=== PATIENT | male | born 1960 | race Caucasian/White ===

== ENCOUNTER 2018-04-09 11:26 | Inpatient (IN) ==
[2018-04-09] MEDS ORDERED: SODIUM CHLORIDE 0.9% 1,000 ML IV STA (12:06)
[2018-04-09] MEDS ORDERED: ONDANSETRON 4 MG/2 ML VIAL IV STA (12:06)
[2018-04-09 12:31] LABS: Basophils % 0.2 % (0.0-0.8); Eosinophils % 0.1 % (0.00-10.9); Hematocrit 33.7 VOL% (42.0-52.0); Hemoglobin 10.4 GM/DL (14.0-18.0); Immature Granulocytes % 0.2 %; Immature Granulocytes Absolute 0.02 #; Lymphocytes # 1.1 10*3/uL (1.4-4.0); Lymphocytes % 11.6 % (21.2-54.2); Mean Corpuscular HGB Conc 30.9 GM/DL (32-36); Mean Corpuscular Hemoglobin 21 PG (27-34); Mean Corpuscular Volume 68.9 FL (87-102); Monocytes # 0.7 10*3/uL (0.11-0.8); Monocytes % 7.7 % (1.7-12.7); Neutrophils # 7.3 10*3/uL (1.4-7.4); Neutrophils % 80.2 % (38.7-73.9); Platelet Count 465 T/CUMM (130-400); Red Blood Count 4.89 MC/CUMM (3.8-5.5); Red Cell Distribution Width 22.8 % (9.3-17.3); White Blood Count 9.1 T/CUMM (4-12)
[2018-04-09 12:58] LABS: Alanine Aminotransferase 13 U/L (16-61); Albumin 3.1 G/DL (3.4-5.0); Alkaline Phosphatase 77 U/L (45-117); Amylase 15 U/L (25-115); Aspartate Amino Transferase 14 U/L (0-37); Blood Urea Nitrogen 24 MG/DL (7-18); Calcium 9.2 MG/DL (8.5-10.1); Glucose 76 MG/DL (74-106); Osmolality,Calculated 266.5 MOS/KG (273-304); Sodium 132 MMOL/L (136-145); Total Protein 7.2 G/DL (6.4-8.3); Troponin I Only < 0.015 NG/ML (0.00-0.045)
[2018-04-09 13:16] LABS: Macrocytosis 2+; Target Cells Slight
[2018-04-09 13:55] LABS: Apearance,Urine Slightly Hazy (Clear); Bacteria,Urine Few /HPF (Few); Blood, Urine Negative (Negative); Glucose,Urine (UA) Negative (Negative); Granular Casts,Urine 3 /LPF (0-1); Hyaline Casts,Urine 19 /LPF (0-3); Ketones,Urine 80 mg/dL (Negative); Mucus,Urine Few /LPF (Occasional); Nitrite,Urine Negative (Negative); Protein,Urine 30 MG/DL; RBC,Urine <1 /HPF (0-4); Squamous Epithelial Cell,Urine Occasional /HPF (0-10); Urine Color Amber (Yellow); WBC,Urine 2 /HPF (0-6)
[2018-04-09 13:58] LABS: Bilirubin,Urine Small mg/dL (Negative)
[2018-04-09] MEDS ORDERED: ACETAMINOPHEN 325 MG TABLET PO PRN (16:30)
[2018-04-09] MEDS: SODIUM CHLORIDE 0.9% 1,000 ML IV SCH (17:30)
[2018-04-09] MEDS: PANTOPRAZOLE 40 MG VIAL IV SCH (21:12)
[2018-04-10] MEDS: SODIUM CHLORIDE 0.9% 1,000 ML IV SCH ×3 (01:11→18:49)
[2018-04-10] MEDS: ONDANSETRON 4 MG/2 ML VIAL IV PRN ×3 (01:17→16:29)
[2018-04-10] MEDS ORDERED: PHENYLEPHRINE 1 MG/10 ML SYRINGE IV ONE (09:00)
[2018-04-10] MEDS ORDERED: PANTOPRAZOLE 40 MG TABLET PO SCH (09:00)
[2018-04-10] MEDS ORDERED: LIDOCAINE 2% 5 ML VIAL ONE (09:00)
[2018-04-10] MEDS ORDERED: PROPOFOL 200 MG/20 ML VIAL IV ONE (09:00)
[2018-04-10] MEDS: PANTOPRAZOLE 40 MG VIAL IV SCH ×2 (09:23→21:43)
[2018-04-10 09:40] LABS: Basophils % 0.3 % (0.0-0.8); Eosinophils % 0.6 % (0.00-10.9); Hematocrit 27.3 VOL% (42.0-52.0); Hemoglobin 8.6 GM/DL (14.0-18.0); Immature Granulocytes % 0.3 %; Immature Granulocytes Absolute 0.02 #; Lymphocytes % 14.3 % (21.2-54.2); Mean Corpuscular HGB Conc 31.5 GM/DL (32-36); Mean Corpuscular Hemoglobin 22 PG (27-34); Mean Corpuscular Volume 69.1 FL (87-102); Mean Platelet Volume 10.8 FL (9.6-12.0); Monocytes # 0.6 10*3/uL (0.11-0.8); Monocytes % 9.4 % (1.7-12.7); Neutrophils # 5.1 10*3/uL (1.4-7.4); Neutrophils % 75.1 % (38.7-73.9); Platelet Count 335 T/CUMM (130-400); Red Blood Count 3.95 MC/CUMM (3.8-5.5); Red Cell Distribution Width 22.5 % (9.3-17.3); White Blood Count 6.8 T/CUMM (4-12)
[2018-04-10 10:16] LABS: Calcium 8.1 MG/DL (8.5-10.1); Osmolality,Calculated 273.8 MOS/KG (273-304); Potassium 4.3 MMOL/L (3.5-5.1); Risk Ratio 1.97; VLDL CHOLESTEROL 13.2 MG/DL
[2018-04-10 10:22] LABS: % Iron Saturation 5.3 % (18-50); Ferritin 3.8 ng/ml (26-388)
[2018-04-10 11:09] LABS: Hypochromasia 1+; Microcytosis 2+; Ovalocytes 1+; Platelet Estimate Normal
[2018-04-10 12:49] LABS: Cancer Antigen 19-9 137.2 U/ML (0-37); Carcinoembryonic Antigen 5.1 NG/ML (0.0-5.0)
[2018-04-10 13:18] LABS: Folate 10.6 NG/ML (5.4-24.0)
[2018-04-11] MEDS: ONDANSETRON 4 MG/2 ML VIAL IV PRN ×2 (00:59→13:47)
[2018-04-11] MEDS: SODIUM CHLORIDE 0.9% 1,000 ML IV SCH ×3 (04:06→22:23)
[2018-04-11 06:45] LABS: Basophils % 0.4 % (0.0-0.8); Eosinophils % 0.5 % (0.00-10.9); Hematocrit 24.4 VOL% (42.0-52.0); Hemoglobin 7.5 GM/DL (14.0-18.0); Immature Granulocytes % 0.2 %; Immature Granulocytes Absolute 0.01 #; Lymphocytes # 1.2 10*3/uL (1.4-4.0); Lymphocytes % 21.3 % (21.2-54.2); Mean Corpuscular HGB Conc 30.7 GM/DL (32-36); Mean Corpuscular Hemoglobin 22 PG (27-34); Mean Corpuscular Volume 70.9 FL (87-102); Mean Platelet Volume 10.4 FL (9.6-12.0); Monocytes # 0.6 10*3/uL (0.11-0.8); Monocytes % 10.6 % (1.7-12.7); Neutrophils # 3.7 10*3/uL (1.4-7.4); Platelet Count 272 T/CUMM (130-400); Red Blood Count 3.44 MC/CUMM (3.8-5.5); Red Cell Distribution Width 22.5 % (9.3-17.3); White Blood Count 5.5 T/CUMM (4-12)
[2018-04-11 07:22] LABS: Osmolality,Calculated 277.3 MOS/KG (273-304); Potassium 3.4 MMOL/L (3.5-5.1)
[2018-04-11 07:35] LABS: Macrocytosis 1+; Polychromasia Slight; Target Cells Slight
[2018-04-11] MEDS: PANTOPRAZOLE 40 MG VIAL IV SCH ×3 (11:51→21:25)
[2018-04-11] MEDS: POTASSIUM CHLORIDE 20 MEQ TABLET PO PRN ×2 (14:26→19:21)
[2018-04-11] MEDS: METOCLOPRAMIDE 10 MG/2 ML VIAL IV SCH ×3 (14:27→23:44)
[2018-04-12] MEDS: METOCLOPRAMIDE 10 MG/2 ML VIAL IV SCH (05:33)
[2018-04-12 06:34] LABS: Basophils % 0.5 % (0.0-0.8); Eosinophils # 0.1 10*3/uL (0.0-0.87); Eosinophils % 0.9 % (0.00-10.9); Hematocrit 25.8 VOL% (42.0-52.0); Immature Granulocytes % 0.4 %; Immature Granulocytes Absolute 0.02 #; Lymphocytes # 1.3 10*3/uL (1.4-4.0); Lymphocytes % 22.8 % (21.2-54.2); Mean Corpuscular Hemoglobin 21 PG (27-34); Mean Corpuscular Volume 69.2 FL (87-102); Mean Platelet Volume 10.4 FL (9.6-12.0); Monocytes # 0.5 10*3/uL (0.11-0.8); Monocytes % 9.6 % (1.7-12.7); Neutrophils # 3.6 10*3/uL (1.4-7.4); Neutrophils % 65.8 % (38.7-73.9); Platelet Count 297 T/CUMM (130-400); Red Blood Count 3.73 MC/CUMM (3.8-5.5); Red Cell Distribution Width 22.9 % (9.3-17.3); White Blood Count 5.5 T/CUMM (4-12)
[2018-04-12 06:53] LABS: Calcium 8.6 MG/DL (8.5-10.1); Osmolality,Calculated 272.5 MOS/KG (273-304)
[2018-04-12] MEDS ORDERED: PANTOPRAZOLE 40 MG TABLET PO ONE (09:43)
[2018-04-12] MEDS: PANTOPRAZOLE 40 MG TABLET PO SCH (09:56)
[2018-04-12] MEDS: PANTOPRAZOLE 40 MG VIAL IV SCH (10:24)
[2018-04-12] MEDS: METOCLOPRAMIDE 10 MG/10 ML UDCUP PO SCH ×3 (12:15→20:58)
[2018-04-12 13:00] LABS: Microcytosis 1+
[2018-04-12] MEDS: ONDANSETRON 4 MG/2 ML VIAL IV PRN ×2 (17:50→23:00)
[2018-04-12] MEDS: SODIUM CHLORIDE 0.9% 1,000 ML IV SCH (22:43)
[2018-04-13] MEDS: METOCLOPRAMIDE 10 MG/10 ML UDCUP PO SCH (06:39)
[2018-04-13] MEDS: PANTOPRAZOLE 40 MG TABLET PO SCH (09:29)
[2018-04-13] MEDS: ONDANSETRON 4 MG/2 ML VIAL IV PRN ×2 (13:54→22:25)
[2018-04-13] MEDS: SODIUM CHLORIDE 0.9% 1,000 ML IV SCH (22:24)
[2018-04-14] MEDS: ONDANSETRON 4 MG/2 ML VIAL IV PRN ×3 (06:04→14:51)
[2018-04-14] MEDS: PANTOPRAZOLE 40 MG TABLET PO SCH (10:46)
[2018-04-14 12:01] LABS: Basophils % 0.2 % (0.0-0.8); Eosinophils % 0.3 % (0.00-10.9); Hemoglobin 8.2 GM/DL (14.0-18.0); Immature Granulocytes % 0.3 %; Immature Granulocytes Absolute 0.02 #; Lymphocytes # 0.8 10*3/uL (1.4-4.0); Lymphocytes % 12.1 % (21.2-54.2); Mean Corpuscular HGB Conc 30.4 GM/DL (32-36); Mean Corpuscular Hemoglobin 21 PG (27-34); Mean Corpuscular Volume 69.8 FL (87-102); Mean Platelet Volume 10.9 FL (9.6-12.0); Monocytes # 0.5 10*3/uL (0.11-0.8); Monocytes % 7.3 % (1.7-12.7); Neutrophils # 5.1 10*3/uL (1.4-7.4); Neutrophils % 79.8 % (38.7-73.9); Platelet Count 181 T/CUMM (130-400); Red Blood Count 3.87 MC/CUMM (3.8-5.5); Red Cell Distribution Width 23.6 % (9.3-17.3); White Blood Count 6.4 T/CUMM (4-12)
[2018-04-14 12:24] LABS: Hypochromasia 1+; Microcytosis 1+; Platelet Estimate Adequate
[2018-04-14 12:28] LABS: Alanine Aminotransferase 10 U/L (16-61); Albumin 2.2 G/DL (3.4-5.0); Alkaline Phosphatase 56 U/L (45-117); Aspartate Amino Transferase 15 U/L (0-37); Bilirubin,Total < 0.39 MG/DL (0.2-1.0); Blood Urea Nitrogen 10 MG/DL (7-18); Calcium 8.1 MG/DL (8.5-10.1); Glucose 82 MG/DL (74-106); Osmolality,Calculated 272.7 MOS/KG (273-304); Potassium 3.9 MMOL/L (3.5-5.1); Sodium 138 MMOL/L (136-145); Total Protein 5.1 G/DL (6.4-8.3)
[2018-04-14] MEDS ORDERED: PROMETHAZINE INJ 25 MG in SODIUM CHLORIDE 0.9% 50 ML IV PRN (15:18)
[2018-04-14 16:46] VITALS: BP 110/64
== END 2018-04-14 19:15 | disposition hospice, home (50) | DRG 641 ==
LOC: N.ED 11:26 → SUATTDRO 14:23 → N.EDINP 14:23 → N.5E 16:19
PROVIDERS: ADMIT Internal Medicine; ATTEND Internal Medicine